=== PATIENT | female | born 1985 | race Caucasian/White ===

== ENCOUNTER 2016-09-02 05:06 | Inpatient (IN) | payer MEDICAID ==
[~2016-09-02] VITALS: Ht 134.6 cm; Wt 55.2 kg
[2016-09-02 05:15] VITALS: BP 95/58; PULSE 71; RESP 18; Ht 134.6 cm; Wt 55.2 kg
[2016-09-02] MEDS ORDERED: LACTATED RINGER'S 1,000 ML IV SCH (05:44)
[2016-09-02] MEDS ORDERED: CEFAZOLIN 2 GM/50 ML (PMX) 50 ML IV SCH (06:00)
[2016-09-02] MEDS ORDERED: METHYLERGONOVINE 0.2 MG INJ IM PRN ×2 (06:00→09:30)
[2016-09-02] MEDS ORDERED: MISOPROSTOL 200 MCG TAB PR PRN ×2 (06:00→09:30)
[2016-09-02] MEDS ORDERED: CARBOPROST 250 MCG INJ IM PRN ×2 (06:00→09:30)
[2016-09-02] MEDS ORDERED: OXYTOCIN 30 UNITS/LR 500 ML IV PRN (06:00)
[2016-09-02 06:31] LABS: ADD SCAN DIFF NO
--- NOTE | 2016-09-02 06:35 | TRIAGE ---
OB Triage Datetime Report Generated by CPN: 09/02/2016 06:35 Datetime: 09/02/2016 06:12 Stage of : Labor Temperature Route: Oral Pain Assessment Pain Scale: 7 Pain Presence: Intermittent Pain Type: Cramping Pain Location: Abdomen Pain Goal: 3 Pain Relief Measures: Comfort Measures Datetime: 09/02/2016 06:05 Time of Arrival: 09/02/2016 06:00 EGA: 39.1 Arrived By: Stretcher Arrived From: TRIAGE Datetime: 09/02/2016 06:00 Labor Evaluation Frequency: 2-4 Monitor Mode: External Duration (sec)2399: 60-120 Quality: Mild Pattern: Normal: <= 5 Contractions in 10 Minutes Resting Tone [place]: Relaxed Heart Rate FHR Baseline Rate: 155 Monitor Mode: External US FHR Baseline Changes: No Baseline Change Variability: Moderate 6-25 bpm Accelerations: 15X15 Decelerations: None Category: Category I Datetime: 09/02/2016 05:55 Stage of : Labor Datetime: 09/02/2016 05:43 Membrane Status: Intact Datetime: 09/02/2016 05:39 Stage of : OB Triage Datetime: 09/02/2016 05:33 Vaginal Exam Dilatation (cms): 0.0 Effacement (%): 0 Station: -3 Exam By: Reyna TOLENTINO RN Vaginal Bleeding: None Cervix, Consistency: Firm Cervix, Position: Posterior Datetime: 09/02/2016 05:21 EGA: 39.1 Datetime: 09/02/2016 05:16 Stage of : OB Triage Time of Arrival: 09/02/2016 05:07 Arrived By: Wheelchair Arrived From: Home Chief Complaint: CONTRACTIONS AND PRESSURE Movement: Present Contractions: Irregular Rupture of Membranes: Denies Vaginal Bleeding: None Vaginal Discharge: Denies Recent Sexual Intercouse: Denies Abdominal Trauma: Not Applicable Patient Complaints: None Time Provider Notified: 09/02/2016 05:39 Provider Notified: DR ARREDONDO Initial Plan: CALL MD [facility] Maternal Assessment Level of Consciousness: Fully Conscious DTR's/Clonus: DTRs 2+; No Clonus Headache: Denies Blurred Vision: No Respiratory Effort: Unlabored; Regular Rhythm; Equal Expansion Breath Sounds, Left: Clear and Equal Breath Sounds, Right: Clear and Equal Nausea/Vomiting: Denies RUQ Epigastric Pain: Denies Lower Extremities Edema: None Degree: None Upper Extremities Edema: None Degree: None Facial Edema: None Temperature Route: Oral Fall Risk Assessment History of Falling: (0) No Secondary Diagnosis: (0) No Ambulatory Aid: (0) Bedrest/Nurse Assist IV Therapy: (0) No Gait: (0) Normal/Bedrest/Immobile Mental Status: (0) Oriented to Own Ability Fall Score: 0 Fall Risk Score Definition: No Risk: No action required Monitor Mode: External Monitor Mode: External US Pain Assessment Pain Scale: 8 Pain Presence: Intermittent Pain Type: Cramping Pain Location: Abdomen
[2016-09-02 07:01] LABS: INR 0.98
[2016-09-02 07:02] LABS: PARTIAL THROMBOPLASTIN TIME 27.5 Sec (25.0-35.0)
[2016-09-02 07:04] LABS: BASOPHILS % 0.7 % (0.0-2.0); EOSINOPHILS # 0.1 10^3/ul (0.0-0.5); EOSINOPHILS % 1.4 % (0.0-7.0); HEMATOCRIT 31.6 % (37.0-47.0); LYMPHOCYTES # 1.2 10^3/ul (0.8-2.9); LYMPHOCYTES % 26.1 % (15.0-51.0); MEAN CORPUSCULAR HEMOGLOBIN 25.2 pg (29.0-33.0); MEAN CORPUSCULAR HGB CONC 31.6 g/dl (32.0-37.0); MEAN CORPUSCULAR VOLUME 79.6 fl (82.0-101.0); MEAN PLATELET VOLUME 10.9 fl (7.4-10.4); MONOCYTE # 0.4 10^3/ul (0.3-0.9); MONOCYTES % 9.3 % (0.0-11.0); NEUTROPHIL # 2.7 10^3/ul (1.6-7.5); NEUTROPHILS % 61.6 % (39.0-77.0); PLATELET COUNT 233 10^3/UL (140-415); RED BLOOD COUNT 3.97 10^6/ul (4.20-5.40); RED CELL DISTRIBUTION WIDTH 15.5 % (11.5-14.5); WHITE BLOOD COUNT 4.4 10^3/ul (4.8-10.8)
[2016-09-02] MEDS ORDERED: EPHEDrine SULFATE 50 MG/5 ML SYG ONE (08:23)
[2016-09-02] MEDS ORDERED: morphine SULFATE/PF (10 MG/10 ML) INJ ONE (08:24)
[2016-09-02] MEDS ORDERED: PHENYLephrine (100 MCG/ML) 5ML SYG ONE ×2 (08:24→09:18)
[2016-09-02] MEDS ORDERED: FENTAnyl 50 MCG/ML VIAL ONE (08:24)
--- NOTE | 2016-09-02 08:39 | PREOPHP ---
DATE OF ADMISSION: 09/02/2016 HISTORY OF PRESENT ILLNESS: Ms. Alannah Cooper is a 30-year-old 2, para 1, intrauterine p regnancy at 39 weeks gestational age, admitted today for elective repeat delivery. She rep orts having irregular contractions since early this morning. She denies any vaginal bleeding or dis charge. Her care took place at [facility]. PAST MEDICAL HISTORY: None. MEDICATIONS: vitamins. PAST SURGICAL HISTORY: x1 previous section. OBSTETRIC HISTORY: x1 previous section. GYNECOLOGIC HISTORY: 13, regular, 3 to 4 days. Denies any sexually transmitted diseases. Sexually active with 1 partner. SOCIAL HISTORY: Denies any smoking, drugs or alcohol. FAMILY HISTORY: None. PHYSICAL EXAMINATION: HEENT: Within normal. LUNGS: CTA bilateral. CARDIOVASCULAR: S1, S2, regular rhythm. ABDOMEN: Gravid, nontender. EXTREMITIES: Negative edema. No calf tenderness. PELVIC: Long and closed. heart tracing category 1. Tocometer irregular contractions. ASSESSMENT: A 30-year-old 2, para 1, intrauterine at 39 weeks' gestational age, previous section x1, desires elective repeat delivery, declined . PLAN: Consent for repeat delivery. Risks, benefits and alternatives explained. All quest ions were answered. Dictated By: ENEDELIA SMITH/HIWOT Conf#: [id number] DID#: [id number]
[2016-09-02] MEDS ORDERED: DEXAMETHASONE 4 MG/ML 1 ML INJ ONE (08:44)
[2016-09-02] MEDS ORDERED: ONDANSETRON 4 MG INJ ONE (08:44)
[2016-09-02] MEDS ORDERED: OXYTOCIN 30 UNITS/LR 500 ML IV ONE (08:46)
[2016-09-02] MEDS ORDERED: DIPHENHYDRAMINE 50 MG INJ IV PRN (09:30)
[2016-09-02] MEDS ORDERED: LANOLIN 7 GM TUBE TOP PRN (09:30)
[2016-09-02] MEDS ORDERED: HYDROmorphONE 1 MG/ML SYG IV PRN ×2 (09:30)
[2016-09-02] MEDS ORDERED: OXYCODONE/ACETAMINOPHEN (5/325) TAB PO PRN (09:30)
[2016-09-02] MEDS ORDERED: NALOXONE (0.4 MG/ML) INJ IV PRN (09:30)
[2016-09-02] MEDS ORDERED: ONDANSETRON 4 MG INJ IV PRN (09:30)
[2016-09-02] MEDS ORDERED: ZOLPIDEM 5 MG TAB PO PRN (09:30)
[2016-09-02] MEDS ORDERED: PROCHLORPERAZINE 10 MG INJ IV PRN (09:30)
[2016-09-02] MEDS: OXYTOCIN 30 UNITS/LR 500 ML IV PRN ×2 (10:48→10:51)
[2016-09-02 12:00] VITALS: BP 102/58; PULSE 72; RESP 18
[2016-09-02] MEDS: IBUPROFEN 600 MG TAB PO SCH ×2 (12:00→18:00)
[2016-09-02] MEDS: LACTATED RINGER'S 1,000 ML IV SCH ×3 (12:57→21:46)
[2016-09-02 15:50] VITALS: BP 98/53; PULSE 75; RESP 17
[2016-09-02] MEDS: KETOROLAC 30 MG INJ IV PRN (18:20)
[2016-09-02 19:20] VITALS: BP 100/60; PULSE 71; RESP 19
[2016-09-02] MEDS: SENNA/DOCUSATE NA (8.6MG/50MG) TAB PO SCH (20:34)
[2016-09-03 00:30] VITALS: BP 102/60; PULSE 68; RESP 20
[2016-09-03 04:00] VITALS: BP 103/64; PULSE 75; RESP 19
[2016-09-03] MEDS: LACTATED RINGER'S 1,000 ML IV SCH (05:18)
[2016-09-03] MEDS: IBUPROFEN 600 MG TAB PO SCH ×4 (06:00→18:14)
--- NOTE | 2016-09-03 07:02 | QN ---
Documentation Comment attending note pod 1 patient seen and evaluated no complaints vs stable ab dressing clean nt no distention extremity no edema no calf tenderness a/ s/p repeat cd pod 1 stable p/ f/u cbc ENEDELIA ARREDONDO MD Sep 03, 2016 07:02
[2016-09-03 08:00] VITALS: BP 94/57; PULSE 79; RESP 18
[2016-09-03] MEDS: KETOROLAC 30 MG INJ IV PRN (08:13)
[2016-09-03 08:14] LABS: ADD SCAN DIFF NO
[2016-09-03 08:24] LABS: BASOPHILS % 0.3 % (0.0-2.0); EOSINOPHILS % 0.3 % (0.0-7.0); HEMATOCRIT 24.8 % (37.0-47.0); HEMOGLOBIN 7.8 g/dl (12.0-16.0); LYMPHOCYTES % 13.4 % (15.0-51.0); MEAN CORPUSCULAR HEMOGLOBIN 25.1 pg (29.0-33.0); MEAN CORPUSCULAR HGB CONC 31.5 g/dl (32.0-37.0); MEAN CORPUSCULAR VOLUME 79.7 fl (82.0-101.0); MEAN PLATELET VOLUME 11.2 fl (7.4-10.4); MONOCYTE # 0.6 10^3/ul (0.3-0.9); MONOCYTES % 8.4 % (0.0-11.0); NEUTROPHIL # 5.9 10^3/ul (1.6-7.5); NEUTROPHILS % 76.9 % (39.0-77.0); PLATELET COUNT 223 10^3/UL (140-415); RED BLOOD COUNT 3.11 10^6/ul (4.20-5.40); RED CELL DISTRIBUTION WIDTH 15.7 % (11.5-14.5); WHITE BLOOD COUNT 7.6 10^3/ul (4.8-10.8)
[2016-09-03] MEDS: SENNA/DOCUSATE NA (8.6MG/50MG) TAB PO SCH ×2 (08:53→20:32)
[2016-09-03] MEDS: FERROUS SULFATE (EC) 325 MG TAB PO SCH ×2 (08:53→20:32)
[2016-09-03 12:00] VITALS: BP 98/54; PULSE 73; RESP 20
[2016-09-03] MEDS: OXYCODONE/ACETAMINOPHEN (5/325) TAB PO PRN (15:43)
[2016-09-03 16:49] VITALS: BP 93/61; PULSE 77; RESP 18
[2016-09-03 20:48] VITALS: BP 99/59; PULSE 66; RESP 19
[2016-09-04] MEDS: IBUPROFEN 600 MG TAB PO SCH ×4 (00:01→17:40)
[2016-09-04 04:00] VITALS: BP 99/59; PULSE 66; RESP 19
[2016-09-04 08:00] VITALS: BP 100/61; PULSE 65; RESP 18
[2016-09-04] MEDS: FERROUS SULFATE (EC) 325 MG TAB PO SCH ×2 (09:23→21:05)
[2016-09-04] MEDS: SENNA/DOCUSATE NA (8.6MG/50MG) TAB PO SCH ×2 (09:23→21:05)
[2016-09-04] MEDS: OXYCODONE/ACETAMINOPHEN (5/325) TAB PO PRN (11:34)
--- NOTE | 2016-09-04 12:51 | PD.PPDC ---
PERIANESTHESIA MANAGER Discharge Instruction Condition Patient Condition: Fair Diet Diet: Resume Regular Diet Activity/Restrictions Restrictions: No Lifting No Sexual Activity Nothing in the Vagina No [place] No Tampons, douche Wound/Drain Care Instructions Additional Instructions: f/u office this friday to remove sonu Follow-up Follow-up with Physician: 4, Day/Days Provider Information: f/u this friday to remove sonu Return to clinic for [employer] Instructions: Fever greater than 101 Chills Worsening abdominal pain Excessive Vaginal Bleeding More than 2 pads per hour Unable to tolerate diet OB Instructions: Breast Tenderness Depression Blurried Vision Headache Surgical Instructions: Incisional Drainage Incisional Redness ENEDELIA ARREDONDO MD Sep 04, 2016 12:51
--- NOTE | 2016-09-04 13:13 | DS ---
DATE OF ADMISSION: 09/02/2016 DATE OF DISCHARGE: 09/05/2016 PRIMARY DIAGNOSIS: A 30-year-old 2, para 1, intrauterine at 39 weeks' gestational age, previous section x1, desires elective repeat delivery, declined . PROCEDURE: Repeat low transverse delivery with lysis of adhesions. CONDITION ON DISCHARGE: Stable. ACTIVITY: None per vagina, no heavy lifting x6 weeks. DIET: Regular. MEDICATIONS ON DISCHARGE 1. Motrin. 2. Percocet. 3. Iron. 4. Colace. DISCHARGE SUMMARY: Ms. Alannah Cooper is a 30-year-old 2, para 2, status post repeat low transverse delivery on 09/02/2016. She had a viable female, 9 and 9, respectively at 1 and 5 minutes. Weight 5 pounds, 14 ounces. She had an uneventful postop day 1 and 2. She will be discharged on postop day 3. Her incision is clean, dry, and intact. She is ambulating, tolerati ng diet, positive flatulence, positive bowel movement. A CBC was ordered for the morning for note. Also, patient has no symptoms of anemia. Dictated By: ENEDELIA SMITH/HIWOT Conf#: [id number] DID#: [id number]
[2016-09-04 20:00] VITALS: BP 107/61; PULSE 70; RESP 18
[2016-09-05] MEDS: IBUPROFEN 600 MG TAB PO SCH ×3 (00:08→11:59)
[2016-09-05] MEDS: OXYCODONE/ACETAMINOPHEN (5/325) TAB PO PRN ×2 (01:17→06:32)
[2016-09-05 04:00] VITALS: BP 128/63; PULSE 64; RESP 18
[2016-09-05 07:30] VITALS: BP 107/62; PULSE 64; RESP 18
[2016-09-05] MEDS: SENNA/DOCUSATE NA (8.6MG/50MG) TAB PO SCH (08:43)
[2016-09-05] MEDS: FERROUS SULFATE (EC) 325 MG TAB PO SCH (08:43)
[2016-09-05 09:15] LABS: ADD SCAN DIFF NO
[2016-09-05 09:34] LABS: BASOPHILS % 0.4 % (0.0-2.0); EOSINOPHILS # 0.1 10^3/ul (0.0-0.5); EOSINOPHILS % 1.6 % (0.0-7.0); HEMATOCRIT 28.4 % (37.0-47.0); HEMOGLOBIN 8.8 g/dl (12.0-16.0); LYMPHOCYTES # 1.4 10^3/ul (0.8-2.9); LYMPHOCYTES % 20.9 % (15.0-51.0); MEAN CORPUSCULAR HEMOGLOBIN 25.1 pg (29.0-33.0); MEAN CORPUSCULAR VOLUME 81.1 fl (82.0-101.0); MEAN PLATELET VOLUME 10.9 fl (7.4-10.4); MONOCYTE # 0.5 10^3/ul (0.3-0.9); MONOCYTES % 7.7 % (0.0-11.0); NEUTROPHIL # 4.7 10^3/ul (1.6-7.5); NEUTROPHILS % 68.4 % (39.0-77.0); PLATELET COUNT 259 10^3/UL (140-415); WHITE BLOOD COUNT 6.9 10^3/ul (4.8-10.8)
== END 2016-09-05 15:49 | disposition home or self-care (01) | DRG 766 ==
LOC: OBT 05:06 → L-D 05:07 → OBT 05:39 → L-D 08:21 → PP1 12:06
PROVIDERS: ADMIT Obstetrics & Gynecology; ATTEND Obstetrics & Gynecology
PROC: 10D00Z1 Extraction of Products of Conception, Low, Open Approach (ICD-10-PCS; principal; 2016-09-02 09:00)
DX: O34.211 Maternal care for low transverse scar from previous cesarean delivery (principal); Z37.0 Single live birth; Z3A.39 39 weeks gestation of pregnancy
CPT/HCPCS: 36415; 85025; 85610; 85730; 86592; 86850; 86900; 86901; 87340; 94760; 99464; G0463; J0690; J1100; J1885; J2274; J2370; J2405; J2590; J3010; J7120